=== PATIENT | male | born 1960 | race Caucasian/White ===

== ENCOUNTER 2023-09-27 21:48 | Emergency (ER) | payer OTHER, BC ==
[~2023-09-27] VITALS: Ht 177.8 cm; Wt 99.8 kg
[2023-09-27 22:00] VITALS: BP 174/132; PULSE 119; RESP 18; TEMP 98.8; O2SAT 94
[2023-09-27] MEDS: ALPRAZolam 0.5 MG TAB PO ONE (22:35)
[2023-09-27] MEDS: atenoloL 25 MG TAB PO ONE (22:35)
[2023-09-27] MEDS ORDERED: ISOSORBIDE DINITRATE 10 MG TAB ONE (23:25)
[2023-09-27] MEDS: ISOSORBIDE DINITRATE 10 MG TAB PO ONE (23:27)
[2023-09-28 00:23] VITALS: BP 153/89; PULSE 86; RESP 18; TEMP 98; O2SAT 98
== END 2023-09-28 00:23 ==
LOC: MED 21:48
DX: I10 Essential (primary) hypertension (principal); F41.9 Anxiety disorder, unspecified; Z91.148 Patient's other noncompliance with medication regimen for other reason
CPT/HCPCS: 99284